=== PATIENT | male | born 1995 | race Hispanic/Latino ===

== ENCOUNTER 2017-03-30 08:41 | Emergency (ER) | payer MEDICAID, OTHER ==
[2017-03-30] MEDS ORDERED: Albuterol-Ipratrop 3 mg / 0.5 (3 ml) UD INH STA (09:19)
[2017-03-30 09:35] VITALS: RESP 18
[2017-03-30] MEDS ORDERED: Albuterol-Ipratrop 3 mg / 0.5 (3 ml) UD ONE (09:38)
--- NOTE | 2017-03-30 09:54 | C.PDOC ---
History Of Present Illness 21 y/o male presents to ED for evaluation of congestion, shortness of breath, and cough associated with green phlegm for the last 3 days. Denies taking any OTC medications for his symptoms. Pt denies known history of asthma, but recalls being prescribed an inhaler in the past. Otherwise, patient denies any chest pain, palpitations, lightheadedness, n/v/d, abdominal pain, fever, chills , sore throat, runny nose, or any other associated symptoms at this time. (+) smoker. Time Seen by Provider: 03/30/17 09:00 Chief Complaint (Nursing): Cough, Cold, Congestion History Per: Patient History/Exam Limitations: no limitations Onset/Duration Of Symptoms: Days (3) Current Symptoms Are (Timing): Still Present Location Of Pain: None Sick Contacts (Context): None Associated Symptoms: Cough, Sputum (green), Nasal Congestion. denies: Fever, Chills, Sore Throat, Neck Pain, Sinus Drainage, Nausea, Vomiting, Diarrhea Ear Symptoms: Bilateral: None Severity: None Pain Scale Rating Of: 0 Recent travel outside of the [place]: No Additional History Per: Patient Past Medical History Reviewed: Historical Data, Nursing Documentation, Vital Signs Vital Signs: Last Vital Signs Temp 97.7 F 03/30/17 10:13 Pulse 73 03/30/17 10:13 Resp 18 03/30/17 10:13 BP 108/69 03/30/17 10:13 Pulse Ox 97 03/30/17 11:17 - Medical History PMH: Bronchitis Surgical History: No Surg Hx Family History: States: CAD - Social History Hx Tobacco Use: Yes Hx Alcohol Use: Yes Hx Substance Use: Yes - Immunization History Hx Tetanus Toxoid Vaccination: No Hx Influenza Vaccination: No Hx Pneumococcal Vaccination: No Review Of Systems Except As Marked, All Systems Reviewed And Found Negative. Constitutional: Negative for: Fever, Chills ENT: Positive for: Nose Congestion. Negative for: Ear Pain, Nose Discharge, Throat Pain Cardiovascular: Negative for: Chest Pain, Palpitations, Edema, Light Headedness Respiratory: Positive for: Cough, Shortness of Breath, Sputum. Negative for: Hemoptysis Gastrointestinal: Negative for: Nausea, Vomiting, Abdominal Pain, Diarrhea Musculoskeletal: Negative for: Neck Pain Skin: Negative for: Rash, Bruising Neurological: Negative for: Headache, Dizziness Physical Exam - Physical Exam Appears: Non-toxic, No Acute Distress Skin: Normal Color, Warm, Dry, No Rash Head: Atraumatic, Normacephalic Eye(s): bilateral: Normal Inspection, EOMI Ear(s): Bilateral: Normal Nose: Normal Oral Mucosa: Moist Tongue: Normal Appearing Lips: Normal Appearing Throat: Normal, No Erythema, No Exudate, No Drooling Neck: Normal ROM, Supple Chest: Symmetrical Cardiovascular: Rhythm Regular Respiratory: No Accessory Muscle Use, No Rales, No Rhonchi, Wheezing (scattered) Gastrointestinal/Abdominal: Soft, No Tenderness Extremity: Normal ROM, No Pedal Edema Neurological/Psych: Oriented x3, Normal Speech ED Course And Treatment O2 Sat by Pulse Oximetry: 97 (on RA) Pulse Ox Interpretation: Normal Progress Note: CXR ordered and reviewed. Patient was given Prednisone, and nebulizer treatment. On reassessment, scattered wheezing still persists. Another nebulizer treatment was given. On re-eval, pt is clear to auscultation. No shortness of breath, wheezing, or retractions. Pt is afebrile. Pt notes feeling better. Patient is being discharged home, with instructions to follow up with PMD in 1-2 days for further evaluation. Disposition - Disposition Disposition: HOME/ ROUTINE Disposition Time: 10:44 Condition: STABLE Additional Instructions: Stop smoking. Follow up with your primary doctor in 1-2 days. Return to ER if symptoms persist or worsen. 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 - Scribe Statement The provider has reviewed the documentation as recorded by the Adanibe Casey Razo All medical record entries made by the Scribe were at my direction and personally dictated by me. I have reviewed the chart and agree that the record accurately reflects my personal performance of the history, physical exam, medical decision making, and the department course for this patient. I have also personally directed, reviewed, and agree with the discharge instructions and disposition.
--- NOTE | 2017-03-30 10:11 | RAD ---
HISTORY: sob COMPARISON: 06/23/2015 TECHNIQUE: Chest PA and lateral FINDINGS: LUNGS: No active pulmonary disease. Bilateral hyperaeration PLEURA: No significant pleural effusion identified. No pneumothorax apparent. CARDIOVASCULAR: Normal. OSSEOUS STRUCTURES: No significant abnormalities. VISUALIZED UPPER ABDOMEN: Normal. OTHER FINDINGS: None. IMPRESSION: No active disease.
[2017-03-30 10:14] VITALS: BP 108/69; PULSE 73; TEMP 97.7
[2017-03-30 10:16] VITALS: O2SAT 97
[2017-03-30] MEDS ORDERED: Albuterol 0.083% Inhal Sol (2.5 mg/3 mL) UD IH STA (10:36)
[2017-03-30] MEDS ORDERED: Albuterol 0.083% Inhal Sol (2.5 mg/3 mL) UD ONE (10:54)
== END 2017-03-30 11:30 | disposition home or self-care (01) ==
LOC: C.ER 08:41
DX: J40 Bronchitis, not specified as acute or chronic (principal); Z72.0 Tobacco use

== ENCOUNTER 2017-09-09 16:58 | Emergency (ER) | payer MEDICAID, OTHER ==
[2017-09-09 16:58] VITALS: BMI 18.2
--- NOTE | 2017-09-09 17:59 | C.PDOC ---
History Of Present Illness <Nakia Whitley - Last Filed: 09/09/17 18:53> <Farrah Orona - Last Filed: 09/09/17 21:57> 22-year-old male, is brought to the emergency department by [facility] with complaints of intoxication. Patient found on street, has no physical complaints at this time. Denies any HI/SI. (Nakia Whitley) History Per: Patient Onset/Duration Of Symptoms: Days Current Symptoms Are (Timing): Still Present <Nakia Whitley - Last Filed: 09/09/17 18:53> <Farrah Orona - Last Filed: 09/09/17 21:57> Chief Complaint (Nursing): Substance Abuse Past Medical History Reviewed: Historical Data, Nursing Documentation, Vital Signs - Medical History PMH: Asthma, Bronchitis Family History: States: CAD - Social History Hx Tobacco Use: Yes Hx Alcohol Use: Yes Hx Substance Use: Yes - Immunization History Hx Tetanus Toxoid Vaccination: No Hx Influenza Vaccination: Yes Hx Pneumococcal Vaccination: No <Nakia Whitley - Last Filed: 09/09/17 18:53> Vital Signs: Last Vital Signs Temp 98 F 09/09/17 17:00 Pulse 113 H 09/09/17 17:00 Resp 18 09/09/17 17:00 BP 148/81 09/09/17 17:00 Pulse Ox 98 09/09/17 18:56 Review Of Systems Constitutional: Negative for: Fever Cardiovascular: Negative for: Chest Pain, Palpitations Respiratory: Negative for: Shortness of Breath Gastrointestinal: Negative for: Vomiting Psych: Negative for: Psychosis, Suicidal ideation <Nakia Whitley - Last Filed: 09/09/17 18:53> Physical Exam - Physical Exam Appears: Non-toxic, No Acute Distress Skin: Warm, Dry, No Rash, No Jaundice Head: Normacephalic Eye(s): bilateral: PERRL Nose: Normal Oral Mucosa: Moist Neck: Normal ROM Cardiovascular: Rhythm Regular, No Murmur Respiratory: Normal Breath Sounds, No Accessory Muscle Use Extremity: Normal ROM, Capillary Refill (<2 seconds), No Deformity, No Swelling Neurological/Psych: Oriented x3 (No focal deficit, appears intoxicated. Calm and cooperative) <Nakia Whitley - Last Filed: 09/09/17 18:53> ED Course And Treatment - Laboratory Results Result Diagrams: 09/09/17 17:57 09/09/17 17:57 O2 Sat by Pulse Oximetry: 98 (RA) Pulse Ox Interpretation: Normal Progress Note: Patient still appears intoxicated and is being held in ED for observation. Case was signed out to at 7 pm. <Nakia Whitley - Last Filed: 09/09/17 18:53> - Laboratory Results Result Diagrams: 09/09/17 17:57 09/09/17 17:57 <Farrah Orona - Last Filed: 09/09/17 21:57> Medical Decision Making <Nakia Whitley - Last Filed: 09/09/17 18:53> <Farrah Orona - Last Filed: 09/09/17 21:57> Medical Decision Making: Labs and UA ordered and reviewed. (Nakia Whitley) Disposition - Disposition Disposition Time: 19:00 <Nakia Whitley - Last Filed: 09/09/17 18:53> Counseled Patient/Family Regarding: Studies Performed, Diagnosis, Need For Followup <Farrah Orona - Last Filed: 09/09/17 21:57> - Disposition Referrals: [facility] [Outside] Condition: FAIR Instructions: Polysubstance Abuse (DC) Forms: [facility] (Turkmen) - Clinical Impression Clinical Impression: Drug abuse - Scribe Statement The provider has reviewed the documentation as recorded by the Scribe (Dorie Quintanilla) <Nakia Whitley - Last Filed: 09/09/17 18:53> <Farrah Orona - Last Filed: 09/09/17 21:57> - Scribe Statement All medical record entries made by the Scribe were at my direction and personally dictated by me. I have reviewed the chart and agree that the record accurately reflects my personal performance of the history, physical exam, medical decision making, and the department course for this patient. I have also personally directed, reviewed, and agree with the discharge instructions and disposition. (Nakia Whitley) Physician Patient Turnover Patient Signed Over To: Farrah Orona Handoff Comments: pending sobriety <Nakia Whitley - Last Filed: 09/09/17 18:53>
[2017-09-09 18:09] LABS: BASO % 0.4 % (0.0-2.0); EOS % 0.4 % (0.0-4.0); HEMOGLOBIN 15.3 g/dL (12.0-18.0); LYMPH # 1.6 K/uL (1.0-4.3); LYMPH % 18.8 % (20.0-40.0); MEAN CORPUSCULAR HEMOGLOBIN 32.1 pg (27.0-31.0); MEAN CORPUSCULAR HGB CONC 34.2 g/dL (33.0-37.0); MEAN PLATELET VOLUME 7.9 fL (7.2-11.7); MONO # 0.4 K/uL (0.0-0.8); MONO % 4.9 % (0.0-10.0); NEUT # 6.5 K/uL (1.8-7.0); NEUT % 75.5 % (50.0-75.0); RBC 4.76 Mil/uL (4.40-5.90); RED CELL DISTRIBUTION WIDTH 13.5 % (11.5-14.5); WHITE BLOOD COUNT 8.6 K/uL (4.8-10.8)
[2017-09-09 18:10] LABS: MEAN CELL VOLUME 93.8 fL (80.0-94.0); URINE BILIRUBIN NEGATIVE (NEGATIVE); URINE BLOOD NEGATIVE (NEGATIVE); URINE CLARITY Clear (Clear); URINE COLOR Colorless (YELLOW); URINE GLUCOSE (UA) NORMAL (Normal); URINE LEUKOCYTE ESTERASE NEG Leu/uL (Negative); URINE NITRATE NEGATIVE (NEGATIVE); URINE PROTEIN NEGATIVE (NEGATIVE); URINE UROBILINOGEN NORMAL mg/dL (0.2-1.0)
[2017-09-09 18:16] LABS: ALB/GLOB RATIO 1.5 (1.0-2.1); ALBUMIN 5.1 g/dL (3.5-5.0); ALT/SGPT 28 U/L (21-72); AST/SGOT 27 U/L (17-59); BLOOD UREA NITROGEN 12 mg/dL (9-20); GFR AFRICAN-AMERICAN > 60; GFR NON-AFRICAN AMERICAN > 60
[2017-09-09 18:26] LABS: BARBITURATES, UR NEGATIVE (NEGATIVE); BENZODIAZEPINES, UR NEGATIVE (NEGATIVE); OPIATES, UR NEGATIVE (NEGATIVE)
[2017-09-09 18:29] LABS: PHENCYCLIDINE, UR POSITIVE (NEGATIVE)
[2017-09-09 22:06] VITALS: BP 110/70; PULSE 70; RESP 14; TEMP 97.5; O2SAT 96
== END 2017-09-09 22:07 | disposition home or self-care (01) ==
LOC: C.ER 16:58
DX: F19.10 Other psychoactive substance abuse, uncomplicated (principal)
CPT/HCPCS: 80053; 81001; 85025; 99284; G0480

== ENCOUNTER 2017-10-27 09:43 | Emergency (ER) | payer SELFPAY ==
[2017-10-27 09:44] VITALS: BMI 18.2
[2017-10-27 09:47] VITALS: RESP 16; TEMP 97.2
[2017-10-27] MEDS ORDERED: Lidocaine Hydrochloride 5 ML INJ ONE (09:55)
[2017-10-27] MEDS ORDERED: Tetanus/Diphtheria Toxoids 0.5 ml Syringe IM ONE ×2 (10:28→10:40)
--- NOTE | 2017-10-27 10:28 | C.PDOC ---
History Of Present Illness 22 year old male presents to the ED for evaluation of a laceration of his left thigh which occurred prior to arrival. Patient reports he accidentally cut himself with a box stapler while at work. Patient denies any other associated symptoms or trauma. 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 DENIES OTHER ASSOC SX OR TRAUMA EXAM NAD NONTOXIC SKIN +2 CM LINEAR LAC MEDIAL L THIGH. NO FB, CLEAN NO ACTIVE BLEED EXT NO DEFORM NEURO INTACT Time Seen by Provider: 10/27/17 10:03 Chief Complaint (Nursing): Abnormal Skin Integrity History Per: Patient History/Exam Limitations: no limitations Onset/Duration Of Symptoms: Hrs Current Symptoms Are (Timing): Still Present Location Of Injury: Left: Labia (thigh) Quality Of Symptoms: Painful Recent travel outside of the [place]: No Additional History Per: Patient Past Medical History Reviewed: Historical Data, Nursing Documentation, Vital Signs Vital Signs: Last Vital Signs Temp 97.2 F L 10/27/17 09:45 Pulse 69 10/27/17 10:41 Resp 16 10/27/17 10:41 BP 110/71 10/27/17 10:41 Pulse Ox 98 10/27/17 10:41 - Medical History PMH: Asthma, Bronchitis Denies: HIV, HTN, Seizures, Sexually Transmitted Disease Surgical History: No Surg Hx Family History: States: Unknown Family Hx, CAD - Social History Hx Tobacco Use: Yes Hx Alcohol Use: Yes Hx Substance Use: Yes - Immunization History Hx Tetanus Toxoid Vaccination: No Hx Influenza Vaccination: Yes Hx Pneumococcal Vaccination: No Review Of Systems Constitutional: Negative for: Fever, Chills Cardiovascular: Negative for: Chest Pain Respiratory: Negative for: Shortness of Breath Gastrointestinal: Negative for: Abdominal Pain Musculoskeletal: Positive for: Leg Pain Skin: Positive for: Other (laceration) Neurological: Negative for: Weakness, Numbness Physical Exam - Physical Exam Appears: Non-toxic, No Acute Distress Skin: Normal Color, Warm, Dry, Other (2 cm linear laceration to medial left thigh. No foreign body. Clean no active bleeding) Head: Atraumatic, Normacephalic Eye(s): bilateral: Normal Inspection Extremity: Normal ROM, No Tenderness, Capillary Refill (< 2 seconds), No Swelling Pulses: Left Dorsalis Pedis: Normal, Right Dorsalis Pedis: Normal Neurological/Psych: Oriented x3, Normal Motor, Normal Sensation, Other (No focal deficits) Gait: Steady ED Course And Treatment O2 Sat by Pulse Oximetry: 100 (On RA) Pulse Ox Interpretation: Normal Laceration - Laceration Repair 1 Wound Length (In cm): 2 Description Of Wound: Linear, Clean Wound Cleansed With: Betadine, Sterile Saline Anesthesia: Lidocaine 1% Wound Examination: Irrigated With Saline, No FB With Wound Exploration Wound Closure: [place] (3) Wound Complexity: Simple Medical Decision Making Medical Decision Making: Impression: laceration Plan: * Tylenol 650 mg PO * Tetanus 0.5 ml IM Disposition Counseled Patient/Family Regarding: Diagnosis, Need For Followup - Disposition Referrals: [facility] [Outside] [facility] [Outside] Disposition: HOME/ ROUTINE Disposition Time: 10:27 Condition: IMPROVED Additional Instructions: RETURN IN 7 DAYS FOR STAPLE REMOVAL. RETURN SOONER IF CONCERN FOR INFECTION. MOTRIN AND/OR TYLENOL DIRECTED FOR PAIN. LIMITED FULL MOVEMENT ON LEFT LEG Instructions: Laceration Repair With [place] (DC) Forms: [employer] (Cameroonian), Work Excuse - Clinical Impression Clinical Impression: Thigh laceration - Scribe Statement The provider has reviewed the documentation as recorded by the Scribe Don Richey All medical record entries made by the Scribe were at my direction and personally dictated by me. I have reviewed the chart and agree that the record accurately reflects my personal performance of the history, physical exam, medical decision making, and the department course for this patient. I have also personally directed, reviewed, and agree with the discharge instructions and disposition.
[2017-10-27 10:42] VITALS: BP 110/71; PULSE 69
[2017-10-27 10:55] VITALS: O2SAT 100
== END 2017-10-27 10:41 | disposition home or self-care (01) ==
LOC: C.ER 09:43
DX: S71.112A Laceration without foreign body, left thigh, initial encounter (principal); W45.8XXA Other foreign body or object entering through skin, initial encounter; Y92.89 Other specified places as the place of occurrence of the external cause

== ENCOUNTER 2017-11-03 07:35 | Emergency (ER) | payer SELFPAY ==
[2017-11-03 07:36] VITALS: BMI 18.2
[2017-11-03 07:40] VITALS: BP 139/87; PULSE 80; RESP 16; TEMP 97.8; O2SAT 100
--- NOTE | 2017-11-03 08:07 | C.PDOC ---
History Of Present Illness 22 yo male came in for staple removal. Pt had a laceration repair one week ago. Notes area is sore and has some redness. Denies fever or discharge. No change in sensation. Time Seen by Provider: 11/03/17 07:43 Chief Complaint (Nursing): Suture/Staple Removal History Per: Patient History/Exam Limitations: no limitations Onset/Duration Of Symptoms: Days Ago Past Medical History Vital Signs: Last Vital Signs Temp 97.8 F 11/03/17 07:38 Pulse 80 11/03/17 07:38 Resp 16 11/03/17 07:38 BP 139/87 11/03/17 07:38 Pulse Ox 100 11/03/17 08:16 - Medical History PMH: Asthma, Bronchitis Denies: HIV, HTN, Seizures, Sexually Transmitted Disease Family History: States: Unknown Family Hx, CAD - Social History Hx Tobacco Use: Yes Hx Alcohol Use: Yes Hx Substance Use: Yes - Immunization History Hx Tetanus Toxoid Vaccination: No Hx Influenza Vaccination: Yes Hx Pneumococcal Vaccination: No Review Of Systems Constitutional: Negative for: Fever Neurological: Negative for: Weakness, Numbness Physical Exam - Physical Exam Appears: Well, Non-toxic, No Acute Distress Skin: Warm, Dry, Other ((+) healing laceration to the left distal thigh with three igor. Mild erythema, no increased warmth or discharge. No streaking. ) Head: Atraumatic, Normacephalic Eye(s): bilateral: Normal Inspection, EOMI Nose: Normal Oral Mucosa: Moist Throat: Normal Neck: Normal, Normal ROM, Supple Chest: Symmetrical Respiratory: Normal Breath Sounds, No Accessory Muscle Use Back: Normal Inspection Extremity: Normal ROM Neurological/Psych: Oriented x3, Normal Motor, Normal Sensation ED Course And Treatment O2 Sat by Pulse Oximetry: 100 Progress Note: One staple removed. Pt instructed wound care and instructed to return in 3 days for rest of staple removal. Disposition - Disposition Disposition: HOME/ ROUTINE Disposition Time: 08:07 Condition: STABLE Additional Instructions: Return in 3-4 days for staple removal. Apply antibiotic ointment. Prescriptions: Bacitracin OINT 1 applic TP BID #1 tube Cephalexin [cephalexin] 500 mg PO QID 7 Days cap Instructions: Wound Care (DC) Forms: [employer] (German) - Clinical Impression Clinical Impression: Removal of staple
[2017-11-03] MEDS ORDERED: Bacitracin 500 Units/gm Oint Foilpak UD ONE (08:17)
[2017-11-03] MEDS ORDERED: Bacitracin Ointment 30 GM TUBE TOP STA (08:28)
== END 2017-11-03 08:33 | disposition home or self-care (01) ==
LOC: C.ER 07:35
DX: Z48.02 Encounter for removal of sutures (principal)

== ENCOUNTER 2017-11-08 11:24 | Emergency (ER) | payer OTHER ==
[2017-11-08 11:25] VITALS: BMI 18.2
[2017-11-08 11:39] VITALS: BP 108/71; PULSE 81; RESP 18; TEMP 98.1; O2SAT 100
--- NOTE | 2017-11-08 12:06 | C.PDOC ---
History Of Present Illness 22 y/o male presents to the ED requesting staple removal. Patient was initially seen here on 10/27 for laceration to the left thigh, at which time 3 igor were placed. He then returned on 11/03 for wound check and 1 staple was removed, and patient was discharged home with Keflex and bacitracin. Today he is here for remaining staple removal. States he still has irritation around the wound. No fever or chills. Time Seen by Provider: 11/08/17 11:46 Chief Complaint (Nursing): Suture/Staple Removal History Per: Patient History/Exam Limitations: no limitations Onset/Duration Of Symptoms: Days Ago (x 12) Current Symptoms Are (Timing): Still Present Past Medical History Reviewed: Historical Data, Nursing Documentation, Vital Signs Vital Signs: Last Vital Signs Temp 98.1 F 11/08/17 11:37 Pulse 81 11/08/17 11:37 Resp 18 11/08/17 11:37 BP 108/71 11/08/17 11:37 Pulse Ox 100 11/08/17 12:10 - Medical History PMH: Asthma, Bronchitis Denies: HIV, HTN, Seizures, Sexually Transmitted Disease Surgical History: No Surg Hx Family History: States: CAD - Social History Hx Tobacco Use: Yes Hx Alcohol Use: Yes Hx Substance Use: Yes - Immunization History Hx Tetanus Toxoid Vaccination: No Hx Influenza Vaccination: Yes Hx Pneumococcal Vaccination: No Review Of Systems Except As Marked, All Systems Reviewed And Found Negative. Constitutional: Negative for: Fever, Chills Skin: Positive for: Rash, Other (wound to left thigh) Physical Exam - Physical Exam Appears: Non-toxic, No Acute Distress Skin: Warm, Dry, Other (Healing laceration noted with 2 igor intact, and minimal erythema. No swelling or drainage) Neurological/Psych: Oriented x3, Normal Speech ED Course And Treatment O2 Sat by Pulse Oximetry: 100 (RA) Pulse Ox Interpretation: Normal Progress Note: 2 igor were removed without difficulty. Patient is stable for d/c home. Given rx for Bactroban ointment. Disposition Counseled Patient/Family Regarding: Diagnosis, Need For Followup, Rx Given - Disposition Disposition: HOME/ ROUTINE Disposition Time: 12:09 Condition: STABLE Additional Instructions: Follow up with your PMD as needed. Return to ED if feel worse. 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 - Scribe Statement The provider has reviewed the documentation as recorded by the Scribe (Catie Valdes) All medical record entries made by the Scribe were at my direction and personally dictated by me. I have reviewed the chart and agree that the record accurately reflects my personal performance of the history, physical exam, medical decision making, and the department course for this patient. I have also personally directed, reviewed, and agree with the discharge instructions and disposition.
== END 2017-11-08 12:14 | disposition home or self-care (01) ==
LOC: C.ER 11:24
DX: Z48.02 Encounter for removal of sutures (principal)

== ENCOUNTER 2018-01-23 18:27 | Emergency (ER) | payer OTHER ==
[2018-01-23 18:28] VITALS: BMI 18.2
[2018-01-23 19:25] VITALS: BP 128/73; PULSE 86; RESP 18; TEMP 98; O2SAT 98
--- NOTE | 2018-01-23 19:25 | C.PDOC ---
History Of Present Illness 22 year old male, with history of PCP and alcohol abuse, is brought to the ED via EMS for evaluation of reported bizarre behavior noted today. Patient has been evaluated in this ED many times for similar complaints and is well known to the ED staff for PCP abuse. Upon ED arrival, patient is arousable and speaking nonsensically. Patient denies any complaints at this time. Time Seen by Provider: 01/23/18 18:48 Chief Complaint (Nursing): Substance Abuse History Per: Patient, EMS History/Exam Limitations: no limitations Onset/Duration Of Symptoms: Hrs Current Symptoms Are (Timing): Still Present Modifying Factor(s): Other (PCP ) Associated Symptoms: denies: Suicidal Thoughts, Suicidal Plan Additional History Per: Patient, EMS Past Medical History Reviewed: Historical Data, Nursing Documentation, Vital Signs Vital Signs: Last Vital Signs Temp 98 F 01/23/18 19:24 Pulse 86 01/23/18 19:24 Resp 18 01/23/18 19:24 BP 128/73 01/23/18 19:24 Pulse Ox 98 01/23/18 19:41 - Medical History PMH: Asthma ((from previous triage)), Bronchitis ((from previous triage)) Denies: HIV, HTN, Seizures, Sexually Transmitted Disease Surgical History: No Surg Hx Family History: States: Unknown Family Hx, CAD - Social History Hx Tobacco Use: Yes Hx Alcohol Use: No Hx Substance Use: No - Immunization History Hx Tetanus Toxoid Vaccination: No Hx Influenza Vaccination: Yes Hx Pneumococcal Vaccination: No Review Of Systems Psych: Positive for: Other (bizarre behavior ) Physical Exam - Physical Exam Appears: Non-toxic, No Acute Distress Skin: Normal Color, Warm, Dry Head: Atraumatic, Normacephalic Eye(s): bilateral: Other (dilated pupils ) Oral Mucosa: Moist Neck: Supple Chest: Symmetrical, No Deformity, No Tenderness Cardiovascular: Rhythm Regular, No Murmur Respiratory: Normal Breath Sounds, No Rales, No Rhonchi, No Wheezing Extremity: Normal ROM, Capillary Refill (less than 2 seconds ) Neurological/Psych: Other (arousable, speaking nonsensically ) ED Course And Treatment - Laboratory Results Result Diagrams: 01/23/18 19:23 01/23/18 19:23 O2 Sat by Pulse Oximetry: 98 (on RA) Pulse Ox Interpretation: Normal Medical Decision Making Medical Decision Making: Progress: Bloodwork and urinalysis ordered and reviewed. pt seen numerous times for pcp abuse. iner. awake alert, observed 2 hours, on phone oriented x 3. eloped prior to labs results Disposition - Disposition Disposition: ELOPEMENT - ER ONLY Disposition Time: 10:50 Condition: UNKNOWN Forms: [facility] (Austrian) - Clinical Impression Clinical Impression: Substance abuse - Scribe Statement The provider has reviewed the documentation as recorded by the Scribe (Doreen Razo) Provider Attestation: All medical record entries made by the Scribe were at my direction and personally dictated by me. I have reviewed the chart and agree that the record accurately reflects my personal performance of the history, physical exam, medical decision making, and the department course for this patient. I have also personally directed, reviewed, and agree with the discharge instructions and disposition.
[2018-01-23 19:29] LABS: BASO % 0.3 % (0.0-2.0); EOS # 0.1 K/uL (0.0-0.7); EOS % 1.5 % (0.0-4.0); HEMOGLOBIN 13.8 g/dL (12.0-18.0); LYMPH # 1.7 K/uL (1.0-4.3); LYMPH % 24.4 % (20.0-40.0); MEAN CELL VOLUME 94.8 fL (80.0-94.0); MEAN CORPUSCULAR HEMOGLOBIN 32.2 pg (27.0-31.0); MEAN PLATELET VOLUME 7.1 fL (7.2-11.7); MONO # 0.5 K/uL (0.0-0.8); MONO % 6.4 % (0.0-10.0); NEUT # 4.8 K/uL (1.8-7.0); NEUT % 67.4 % (50.0-75.0); RBC 4.27 Mil/uL (4.40-5.90); RED CELL DISTRIBUTION WIDTH 13.2 % (11.5-14.5); WHITE BLOOD COUNT 7.1 K/uL (4.8-10.8)
[2018-01-23 19:42] LABS: ALB/GLOB RATIO 1.9 (1.0-2.1); ALBUMIN 4.4 g/dL (3.5-5.0); ALT/SGPT 27 U/L (21-72); AST/SGOT 23 U/L (17-59); BLOOD UREA NITROGEN 8 mg/dL (9-20); CALCIUM 9.5 mg/dl (8.6-10.4); GFR AFRICAN-AMERICAN > 60; GFR NON-AFRICAN AMERICAN > 60
== END 2018-01-23 19:58 | disposition left against medical advice (07) ==
LOC: C.ER 18:27
DX: F19.10 Other psychoactive substance abuse, uncomplicated (principal); Z72.0 Tobacco use

== ENCOUNTER 2018-02-14 12:17 | Emergency (ER) | payer OTHER ==
[2018-02-14 12:17] VITALS: BMI 18.2
[2018-02-14 12:25] VITALS: BP 118/76; PULSE 108; RESP 20; TEMP 98.8; O2SAT 96
--- NOTE | 2018-02-14 14:25 | C.PDOC ---
History Of Present Illness 22 y/o male presents to the ED complaining of a sore throat for 1 day. Patient is otherwise able to swallow and has been tolerating PO. He denies any fever, chills, cough, recent travel, or sick contacts. Time Seen by Provider: 02/14/18 12:30 Chief Complaint (Nursing): ENT Problem History Per: Patient History/Exam Limitations: no limitations Onset/Duration Of Symptoms: Days Current Symptoms Are (Timing): Still Present Past Medical History Reviewed: Historical Data, Nursing Documentation, Vital Signs Vital Signs: Last Vital Signs Temp 98.8 F 02/14/18 12:21 Pulse 108 H 02/14/18 12:21 Resp 20 02/14/18 12:21 BP 118/76 02/14/18 12:21 Pulse Ox 96 02/14/18 14:35 - Medical History PMH: Asthma ((from previous triage)), Bronchitis ((from previous triage)) Denies: HIV, HTN, Seizures, Sexually Transmitted Disease Family History: States: Unknown Family Hx, CAD - Social History Hx Tobacco Use: Yes Hx Alcohol Use: No Hx Substance Use: No - Immunization History Hx Tetanus Toxoid Vaccination: No Hx Influenza Vaccination: Yes Hx Pneumococcal Vaccination: No Review Of Systems Constitutional: Negative for: Fever, Chills ENT: Positive for: Throat Pain. Negative for: Nose Congestion Respiratory: Negative for: Cough, Shortness of Breath Physical Exam - Physical Exam Appears: Non-toxic, No Acute Distress Skin: Warm, Dry, No Rash Head: Atraumatic, Normacephalic Eye(s): bilateral: Normal Inspection Oral Mucosa: Moist Throat: Erythema (mild), Exudate (on right tonsil) Neck: Supple Lymphatic: Adenopathy (right anterior cervical lymphadenopathy) Chest: Symmetrical Cardiovascular: Rhythm Regular, No Murmur Respiratory: Normal Breath Sounds, No Rales, No Rhonchi, No Wheezing Extremity: Bilateral: Atraumatic, Normal Color And Temperature Neurological/Psych: Oriented x3, Normal Speech Gait: Steady ED Course And Treatment O2 Sat by Pulse Oximetry: 96 (RA) Pulse Ox Interpretation: Normal Medical Decision Making Medical Decision Making: Impression: 22 year old with sore throat Plan: --Patient was given prescriptions for Amoxil 500mg and Motrin 600mg. Counseled patient regarding diagnosis and follow up instructions. Disposition - Disposition Referrals: Fermin Shepherd MD [Medical Doctor] - Disposition: HOME/ ROUTINE Disposition Time: 12:30 Condition: STABLE Additional Instructions: GERALD ELLIOTT, thank you for letting us take care of you today. Your provider was Shakeel Suarez DO and you were treated for THROAT PAIN. The emergency medical care you received today was directed at your acute symptoms. If you were prescribed any medication, please fill it and take as directed. It may take several days for your symptoms to resolve. Return to the Emergency Department if your symptoms worsen, do not improve, or if you have any other problems. Please contact your doctor or call one of the physicians/clinics you have been referred to that are listed on the Patient Visit Information form that is included in your discharge packet. Bring any paperwork you were given at discharge with you along with any medications you are taking to your follow up visit. Our treatment cannot replace ongoing medical care by a primary care provider outside of the emergency department. Thank you for allowing the [facility] team to be part of your care today. Follow up with your primary care doctor in 2-3 days for re-evaluation and further management. Prescriptions: Amoxicillin [Amoxil 500 mg Cap] 500 mg PO Q8 #21 cap Ibuprofen [Motrin] 600 mg PO Q6 PRN #20 tab PRN Reason: Pain, Moderate (4-7) Instructions: Sore Throat, Adult (DC) Forms: [employer] (Thai) - POA Present On Arrival: None - Clinical Impression Clinical Impression: Pharyngitis - Scribe Statement The provider has reviewed the documentation as recorded by the Allison Valdes Provider Attestation: All medical record entries made by the Allison were at my direction and personally dictated by me. I have reviewed the chart and agree that the record accurately reflects my personal performance of the history, physical exam, medical decision making, and the department course for this patient. I have also personally directed, reviewed, and agree with the discharge instructions and disposition.
== END 2018-02-14 12:50 | disposition home or self-care (01) ==
LOC: C.ER 12:17
DX: J02.9 Acute pharyngitis, unspecified (principal)

== ENCOUNTER 2018-02-22 14:38 | Emergency (ER) | payer OTHER ==
[2018-02-22 14:38] VITALS: BMI 18.2
--- NOTE | 2018-02-22 16:10 | CT ---
Date of service: 02/22/2018 PROCEDURE: CT HEAD WITHOUT CONTRAST. HISTORY: Trauma COMPARISON: None available. TECHNIQUE: Axial computed tomography images were obtained through the head/brain without intravenous contrast. Radiation dose: Total exam DLP = 1072.81 mGy-cm. This CT exam was performed using one or more of the following dose reduction techniques: Automated exposure control, adjustment of the mA and/or kV according to patient size, and/or use of iterative reconstruction technique. FINDINGS: HEMORRHAGE: No acute parenchymal, subarachnoid nor extra-axial hemorrhage. BRAIN: No mass effect or edema. No atrophy or chronic microvascular ischemic changes. VENTRICLES: No obstructive hydrocephalus. CALVARIUM: Calvarium intact. . Note made of slight flattening of the right thumb occiput likely related to premature closure of the right lambdoid suture. PARANASAL SINUSES: Unremarkable as visualized. No significant inflammatory changes. MASTOID AIR CELLS: Unremarkable as visualized. No inflammatory changes. OTHER FINDINGS: None. IMPRESSION: No acute intracranial hemorrhage.
--- NOTE | 2018-02-22 16:41 | C.PDOC ---
History Of Present Illness 22 y/o male presents to the ED complaining of pain to his left eye, right jaw, and chest s/p fall last night. Patient states he drank Chris last night and does not remember the details of how he fell. This morning when he tried to eat breakfast, he noticed the right jaw pain when chewing. Patient also complains of pain around the left eye and chest pain. Otherwise he denies any SOB, nausea , vomiting, visual changes, abdominal pain, or other injuries. Time Seen by Provider: 02/22/18 15:08 Chief Complaint (Nursing): Dental Pain History Per: Patient History/Exam Limitations: no limitations Onset/Duration Of Symptoms: Days Current Symptoms Are (Timing): Still Present Past Medical History Reviewed: Historical Data, Nursing Documentation, Vital Signs Vital Signs: Last Vital Signs Temp 98.6 F 02/22/18 17:06 Pulse 86 02/22/18 17:06 Resp 18 02/22/18 17:06 BP 104/74 02/22/18 17:06 Pulse Ox 99 02/22/18 17:06 - Medical History PMH: Asthma ((from previous triage)), Bronchitis ((from previous triage)) Denies: HIV, HTN, Seizures, Sexually Transmitted Disease Family History: States: CAD - Social History Hx Tobacco Use: Yes Hx Alcohol Use: Yes Hx Substance Use: Yes (marijuana) - Immunization History Hx Tetanus Toxoid Vaccination: Yes Hx Influenza Vaccination: Yes Hx Pneumococcal Vaccination: No Review Of Systems Except As Marked, All Systems Reviewed And Found Negative. Constitutional: Negative for: Fever Eyes: Positive for: Pain (near left eye). Negative for: Vision Change ENT: Positive for: Other (Right jaw pain) Cardiovascular: Positive for: Chest Pain. Negative for: Palpitations Respiratory: Negative for: Cough, Shortness of Breath Gastrointestinal: Negative for: Nausea, Vomiting, Abdominal Pain Musculoskeletal: Negative for: Neck Pain, Back Pain Neurological: Negative for: Weakness, Numbness, Incoordination, Dizziness Physical Exam - Physical Exam Appears: Non-toxic, No Acute Distress Skin: Warm, Dry Head: Normacephalic, No Tenderness, Abrasion (Lateral to the left eye there is a small abrasion, no ecchymosis), Other (No palpable fracture or jaw tenderness) Eye(s): bilateral: Normal Inspection (with no nystagmus), PERRL, EOMI Oral Mucosa: Moist Teeth: Normal Dentition, No Tender To Palpation, No Loose, Other (No trismus) Neck: Normal ROM, No Midline Cervical Tenderness, No Paracervical Tenderness, Supple Chest: No Deformity, Tenderness (Mid-sternal tenderness), No Ecchymosis Cardiovascular: Rhythm Regular, No Murmur Respiratory: Normal Breath Sounds, No Accessory Muscle Use Gastrointestinal/Abdominal: Soft, No Tenderness, No Distention Back: Normal Inspection Extremity: Bilateral: Atraumatic, Normal Color And Temperature, Normal ROM Pulses: Left Radial: Normal, Right Radial: Normal Neurological/Psych: Oriented x3, Normal Speech, Normal Cranial Nerves ED Course And Treatment O2 Sat by Pulse Oximetry: 96 (RA) Pulse Ox Interpretation: Normal - Other Rad CXR X-Ray: Read By Radiologist Interpretation: Accession No. : [id number]. Patient Name / ID : EARL DUARTE / [id number]. Exam Date : 02/22/2018 16:11:32 ( Approved ). Study Comment : Sex / Age : M / 22Y. Creator : Mariia Benedict. Dictator : Liban Thomas MD. Director Operating : [employer] : Liban Thomas MD. Approver2 : Report Date : 02/22/2018 16:24:47. My Comment : . Date of service: 02/22/2018. HISTORY: trauma. COMPARISON: 03/30/2017. TECHNIQUE: Chest PA and lateral. FINDINGS: LUNGS: No active pulmonary disease. PLEURA: No significant pleural effusion identified. No pneumothorax apparent. CARDIOVASCULAR: Normal. OSSEOUS STRUCTURES: No significant abnormalities. VISUALIZED UPPER ABDOMEN: Normal. OTHER FINDINGS: None. IMPRESSION: No active disease. No significant interval change compared to the prior examination (s). - CT Scan/US Head CT Other Rad Studies (CT/US): Read By Radiologist, Radiology Report Reviewed CT/US Interpretation: Accession No. : [id number]. Patient Name / ID : EARL DUARTE / [id number]. Exam Date : 02/22/2018 15:52:21 ( Approved ). Study Comment : Sex / Age : M / 22Y. Creator : Marlene Pham. Dictator : Director Operating : [employer] Feeder : Itz Walsh MD. Approver2 : Report Date : 15:59:58. My Comment : . Date of service: 02/22/2018. PROCEDURE : CT HEAD WITHOUT CONTRAST. HISTORY: Trauma. COMPARISON: None available. TECHNIQUE: Axial computed tomography images were obtained through the head/ brain without intravenous contrast. Radiation dose: Total exam DLP = 1072.81 mGy-cm. This CT exam was performed using one or more of the following dose reduction techniques: Automated exposure control, adjustment of the mA and/or kV according to patient size, and/or use of iterative reconstruction technique. FINDINGS: HEMORRHAGE: No acute parenchymal, subarachnoid nor extra-axial hemorrhage. BRAIN: No mass effect or edema. No atrophy or chronic microvascular ischemic changes. VENTRICLES: No obstructive hydrocephalus. CALVARIUM: Calvarium intact. . Note made of slight flattening of the right thumb occiput likely related to premature closure of the right lambdoid suture. PARANASAL SINUSES: Unremarkable as visualized. No significant inflammatory changes. MASTOID AIR CELLS: Unremarkable as visualized. No inflammatory changes. OTHER FINDINGS: None. IMPRESSION: No acute intracranial hemorrhage. Orbits/Facial CT Other Rad Studies (CT/US): Read By Radiologist, Radiology Report Reviewed CT/US Interpretation: Accession No. : [id number]. Patient Name / ID : EARL DUARTE / [id number]. Exam Date : 02/22/2018 15:56:35 ( Approved ). Study Comment : Sex / Age : M / 22Y. Creator : Marlene Pham. Dictator : Director Operating : [employer] Fe[employer] : Itz Walsh MD. Approver2 : Report Date : 16:17:40. My Comment : . Date of service: 02/22/2018. PROCEDURE : CT MAXILLOFACIAL BONES WITH CONTRAST. HISTORY: Trauma. COMPARISON: Comparison made with concurrent CT scan brain. TECHNIQUE: Contiguous axial CT images of the maxillofacial bones were obtained following administration of IV contrast. Coronal and sagittal reformats were generated. Intravenous contrast Dose: Radiation dose: Total exam DLP = 736. The the 49 mGy-cm. This CT exam was performed using one or more of the following dose reduction techniques: Automated exposure control, adjustment of the mA and/or kV according to patient size, and/or use of iterative reconstruction technique. FINDINGS: NASAL BONES : Questionable chronic tiny avulsion fracture distal left nasal bones. No overlying soft tissue swelling. ORBITS: Orbits and contents appear grossly unremarkable. PARANASAL SINUSES/ MASTOIDS: Mild polypoid like mucosal thickening both maxillary antra. There is also minor mucosal thickening seen within a few ethmoid air cells. Small bullosa lizz bullosa right middle turbinate. MAXILLA: Maxilla intact. MANDIBLE/ TEMPOROMANDIBULAR JOINTS: Unremarkable. SKULL BASE: Unremarkable. TEMPORAL BONES: Middle ears and mastoid grossly unremarkable. OTHER FINDINGS: Enlarged adenoids not unusual in this age group. . IMPRESSION: No evidence of acute maxillofacial skeletal fracture. Questionable chronic tiny avulsion fracture distal left nasal bones. Enlarged adenoids not unusual in this age group. Medical Decision Making Medical Decision Making: Impression: Questionable head injury and chest pain s/p fall Initial Plan: --Chest x-ray --Orbits/facials CT --Head CT --Toradol 60 mg IM --Reassessment and disposition All diagnostic testing reviewed and discussed with patient. Copies of reports provided. Patient reported improvement after IM toradol. Advised following up with PMD. Return to the ED for any new or worsening symptoms. Patient verbalized understanding. Stable for discharge home. Disposition - Disposition Disposition: HOME/ ROUTINE Disposition Time: 17:04 Condition: GOOD Additional Instructions: GERALD ELLIOTT, thank you for letting us take care of you today. Your provider was Bonny Falcon MD and you were treated for JAW PAIN. The emergency medical care you received today was directed at your acute symptoms. If you were prescribed any medication, please fill it and take as directed. It may take several days for your symptoms to resolve. Return to the Emergency Department if your symptoms worsen, do not improve, or if you have any other problems. Please contact your doctor or call one of the physicians/clinics you have been referred to that are listed on the Patient Visit Information form that is included in your discharge packet. Bring any paperwork you were given at discharge with you along with any medications you are taking to your follow up visit. Our treatment cannot replace ongoing medical care by a primary care provider outside of the emergency department. Thank you for allowing the [facility] team to be part of your care today. If you had an X-Ray or CT scan: A Radiologist will review the ED reading if any change in treatment is needed we will contact you. If you had a blood, urine, or wound culture: It will take several days for the results, if any change in treatment is needed we will contact you. If you had an STI test: It will take 48 hours for the results. Please call after 1 week if you have not heard back. Instructions: Contusion (DC), Effects of Alcohol on Your Health Forms: [employer] (Cook Islander) - Clinical Impression Clinical Impression: Contusion of jaw, Abrasion of left eyelid and periocular area, initial encounter, Fall, Contusion, chest wall - Scribe Statement The provider has reviewed the documentation as recorded by the Allison Valdes Provider Attestation: All medical record entries made by the Adanibe were at my direction and personally dictated by me. I have reviewed the chart and agree that the record accurately reflects my personal performance of the history, physical exam, medical decision making, and the department course for this patient. I have also personally directed, reviewed, and agree with the discharge instructions and disposition.
--- NOTE | 2018-02-22 16:46 | RAD ---
Date of service: 02/22/2018 HISTORY: trauma COMPARISON: 03/30/2017. TECHNIQUE: Chest PA and lateral FINDINGS: LUNGS: No active pulmonary disease. PLEURA: No significant pleural effusion identified. No pneumothorax apparent. CARDIOVASCULAR: Normal. OSSEOUS STRUCTURES: No significant abnormalities. VISUALIZED UPPER ABDOMEN: Normal. OTHER FINDINGS: None. IMPRESSION: No active disease. No significant interval change compared to the prior examination(s).
--- NOTE | 2018-02-22 16:48 | CT ---
Date of service: 02/22/2018 PROCEDURE: CT MAXILLOFACIAL BONES WITH CONTRAST HISTORY: Trauma COMPARISON: Comparison made with concurrent CT scan brain TECHNIQUE: Contiguous axial CT images of the maxillofacial bones were obtained following administration of IV contrast. Coronal and sagittal reformats were generated. Intravenous contrast Dose: Radiation dose: Total exam DLP = 736. The the 49 mGy-cm. This CT exam was performed using one or more of the following dose reduction techniques: Automated exposure control, adjustment of the mA and/or kV according to patient size, and/or use of iterative reconstruction technique. FINDINGS: NASAL BONES: Questionable chronic tiny avulsion fracture distal left nasal bones. No overlying soft tissue swelling ORBITS: Orbits and contents appear grossly unremarkable. PARANASAL SINUSES/ MASTOIDS: Mild polypoid like mucosal thickening both maxillary antra. There is also minor mucosal thickening seen within a few ethmoid air cells. Small bullosa lizz bullosa right middle turbinate. MAXILLA: Maxilla intact. MANDIBLE/ TEMPOROMANDIBULAR JOINTS: Unremarkable. SKULL BASE: Unremarkable. TEMPORAL BONES: Middle ears and mastoid grossly unremarkable. OTHER FINDINGS: Enlarged adenoids not unusual in this age group. . IMPRESSION: No evidence of acute maxillofacial skeletal fracture. Questionable chronic tiny avulsion fracture distal left nasal bones. Enlarged adenoids not unusual in this age group.
[2018-02-22 17:07] VITALS: BP 104/74; PULSE 86; RESP 18; TEMP 98.6
[2018-02-22 18:29] VITALS: O2SAT 96
== END 2018-02-22 17:09 | disposition home or self-care (01) ==
LOC: C.ER 14:38
DX: S00.83XA Contusion of other part of head, initial encounter (principal); S20.219A Contusion of unspecified front wall of thorax, initial encounter; S00.212A Abrasion of left eyelid and periocular area, initial encounter; W19.XXXA Unspecified fall, initial encounter
CPT/HCPCS: 70450; 70480; 71046; 96372; 99283; J1885

== ENCOUNTER 2018-11-27 20:52 | Emergency (ER) | payer SELFPAY ==
[2018-11-27 20:52] VITALS: BMI 18.2
--- NOTE | 2018-11-27 21:33 | C.PDOC ---
History Of Present Illness 23 year old male brought in by EMS and police after being found sleeping on the sidewalk. Patient admits to using dip and marijuana. Denies any complaints at this time. Time Seen by Provider: 11/27/18 21:12 Chief Complaint (Nursing): Substance Abuse History Per: Patient, EMS History/Exam Limitations: no limitations Onset/Duration Of Symptoms: Hrs Current Symptoms Are (Timing): Still Present Modifying Factor(s): Marijuana, Other (Dip) Recent travel outside of the [place]: No Past Medical History Reviewed: Historical Data, Nursing Documentation, Vital Signs Vital Signs: Last Vital Signs Temp 98.6 F 11/27/18 20:59 Pulse 96 H 11/27/18 20:59 Resp 18 11/27/18 20:59 BP 171/99 H 11/27/18 20:59 Pulse Ox 99 11/27/18 20:59 Primary Care Provider: FAMILY PROVIDER,NO - Medical History PMH: Asthma ((from previous triage)), Bronchitis ((from previous triage)) Denies: HIV, HTN, Seizures, Sexually Transmitted Disease Family History: States: CAD - Social History Hx Tobacco Use: Yes Hx Alcohol Use: No Hx Substance Use: No - Immunization History Hx Tetanus Toxoid Vaccination: No Hx Influenza Vaccination: Yes Hx Pneumococcal Vaccination: No Review Of Systems Constitutional: Negative for: Fever, Chills Cardiovascular: Negative for: Chest Pain, Palpitations Respiratory: Negative for: Cough, Shortness of Breath Gastrointestinal: Negative for: Nausea, Vomiting Neurological: Negative for: Weakness, Numbness Physical Exam - Physical Exam Appears: Non-toxic, Other (Intoxicated) Skin: Normal Color, Warm Head: Atraumatic, Normacephalic Eye(s): bilateral: Other (Disconjugated) Oral Mucosa: Moist Neck: Trachea Midline, Supple Chest: Symmetrical, No Tenderness Cardiovascular: Rhythm Regular Respiratory: Normal Breath Sounds, No Rales, No Rhonchi, No Wheezing Gastrointestinal/Abdominal: Soft, No Tenderness Neurological/Psych: Other (Slurred speech, Ataxic) ED Course And Treatment O2 Sat by Pulse Oximetry: 99 (Room air) Pulse Ox Interpretation: Normal Progress Note: Patient states he will call someone to pick him up. Reevaluation Time: 00:42 Reassessment Condition: Improved (Patient awake and alert, ambulatory with steady gait. Speech no longer slurred.) Disposition Counseled Patient/Family Regarding: Diagnosis, Need For Followup - Disposition Referrals: Non [facility] Provider, [Primary Care Provider] - Disposition: HOME/ ROUTINE Disposition Time: 00:43 Condition: IMPROVED Instructions: Marijuana Use and Addiction (DC) Forms: [employer] (Belgian) - Clinical Impression Clinical Impression: Substance abuse - Scribe Statement The provider has reviewed the documentation as recorded by the Scribe Wilder Burciaga All medical record entries made by the Scribe were at my direction and personally dictated by me. I have reviewed the chart and agree that the record accurately reflects my personal performance of the history, physical exam, medical decision making, and the department course for this patient. I have also personally directed, reviewed, and agree with the discharge instructions and disposition.
[2018-11-28 00:59] VITALS: BP 134/77; PULSE 65; RESP 16; TEMP 97.8; O2SAT 98
== END 2018-11-28 01:15 | disposition home or self-care (01) ==
LOC: C.ER 20:52 → SUPCPDRO 20:52 → C.ER 11-28 01:15
DX: F19.10 Other psychoactive substance abuse, uncomplicated (principal)